=== PATIENT | female | born 1995 | race Caucasian/White ===

== ENCOUNTER 2017-01-06 21:25 | Emergency (ER) | payer OTHER ==
[~2017-01-06 21:25] MED LIST: IBUP800T28 PO; OXYC-466 PO
[2017-01-06 21:32] VITALS: BP 128/95; PULSE 106; RESP 18; O2SAT 100
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
[2017-01-06 22:00] VITALS: BP 123/78; PULSE 74; RESP 14; O2SAT 97
[2017-01-06 22:04] VITALS: BP 112/91; PULSE 101; RESP 16; O2SAT 98
[2017-01-06 22:30] VITALS: BP 101/75; PULSE 69; RESP 12; O2SAT 100
[2017-01-06 22:49] LABS: Mean Corpuscular Hemoglobin 28.1 pg (27.0-35.0); Mean Corpuscular Volume 82.2 fL (81-100)
[2017-01-06 22:50] LABS: BASOPHILS % (AUTO) 0.4 % (0-3); EOSINOPHILS % (AUTO) 1.2 % (0-5); MONOCYTES % (AUTO) 7.1 % (4-12); NEUTROPHILS % (AUTO) 40.2 % (40-74); Platelet Count 247 bil/L (150-400)
[2017-01-06 23:30] VITALS: BP 96/56; PULSE 74; RESP 14; O2SAT 98
[2017-01-07 01:00] VITALS: BP 87/57; PULSE 63; RESP 11; O2SAT 97
[2017-01-07 03:00] VITALS: BP 100/75; PULSE 63; RESP 13; O2SAT 99
[2017-01-07 06:15] VITALS: BP 109/78; PULSE 66; RESP 13; O2SAT 99
[2017-01-07] MEDS ORDERED: LORA-302 PO (10:55)
[2017-01-07 11:07] VITALS: BP 110/74; PULSE 68; RESP 14; O2SAT 99
== END 2017-01-07 11:08 | disposition home or self-care (01) ==
LOC: SED 21:25
DX: R40.0 Somnolence (principal); T40.602A Poisoning by unspecified narcotics, intentional self-harm, initial encounter; X58.XXXA Exposure to other specified factors, initial encounter; Y92.9 Unspecified place or not applicable; Y93.9 Activity, unspecified; Y99.9 Unspecified external cause status; R45.851 Suicidal ideations; F43.0 Acute stress reaction; F41.9 Anxiety disorder, unspecified; F11.20 Opioid dependence, uncomplicated; F17.200 Nicotine dependence, unspecified, uncomplicated
CPT/HCPCS: 36415; 80053; 81002; 81025; 84443; 84703; 85025; 90791; 99285; G0480

== ENCOUNTER 2017-01-09 16:54 | Inpatient (IN) | payer OTHER, MEDICAID ==
[~2017-01-09] VITALS: Ht 157.5 cm; Wt 50.0 kg
[~2017-01-09 16:54] MED LIST changes: +LORA-302 PO
--- NOTE | 2017-01-09 18:15 | NUR ---
Nurses Admission Note 21 year old involuntary female admitted due to overdose on Hydrocodone and Xanax on 01/06/17 after an argument with her boyfriend. Patient was seen in our ER and sent home with an appointment with [facility] for 01/07/17 and found the staff there were unavailable due to the therapists meeting. Patient traveled to [facility] today with feelings of increasing anxiety,depression and thoughts of self harm. Patient had multiple superficial scratches bilateral inner aspect of forearms. She contracts for safety,denies suicidal thoughts. Patient denied abdominal pain although reported cyclic vomiting after eating when she is stressed. Patient ate 50% of her dinner and then reported having vomited unwitnessed. Patient contracted for safety and will be monitored q 15min. for safety and support.This is the first psychiatric hospitalization for her. Patient has been using narcotics frequently for her abdominal pain and has a h/o heroin abuse in the past.
[2017-01-09] MEDS ORDERED: Alum-Mag Hydrox-Simeth 30 mL Suspension PO PRN (19:15)
[2017-01-09] MEDS ORDERED: Benzocaine-Menthol Lozenge 2/Pkg PO PRN (19:15)
[2017-01-09] MEDS ORDERED: Magnesium Hydroxide 10 mL Oral Concentration PO PRN (19:15)
--- NOTE | 2017-01-10 05:00 | NUR ---
nursing, nights, 11-7 s/o- has appeared to sleep after 2214 during q 15 minute assessments. a- no apparent distress. p- monitor behavior/emotional state, quality, times and amount of sleep, use and effect of medication. franko
[2017-01-10 12:07] VITALS: BP 112/76; PULSE 85; RESP 16
--- NOTE | 2017-01-10 13:54 | NUR ---
Nursing Note [id number] Behavior S/O: Pt ate 100% of breakfast & lunch. She states, "I want to get out of here....I don't know why I'm here....I just came in because I was anxious." Pt making frequent requests of staff. Pt attended community meeting this morning, but refused to set a goal for the day. Pt d/n attend any other groups during the day. Pt in room most of the day. Conversation tracking clear & organized. She sometimes chooses not to answer when asked a question, but just shakes her head. Pt rated mood at a "1" on a scale of 1-10/10 the best. A: Pt refuses to engage in treatment on the unit. P: Provide supportive environment. Monitor medications & effects.
[2017-01-10] MEDS: LORazepam 1 mg Tablet PO PRN (16:54)
--- NOTE | 2017-01-10 17:15 | NUR ---
Observations 0900 to 2130 Pt affect and mood was flat, anxious, entitled and isolative. Pt speech was guarded. Pt eye contact was good. Pt attended community meeting and set a daily goal. Pt rated her mood a 1/10, with 10 being the best. Pt was minimally social with staff and select peers when approached. Pt gives short responses when approached. Pt attended meals in [facility]. and ate 100% of her meals. Pt maintained behavior throughout the shift. Pt was polite, pleasant and cooperative. Pt was in her room during free time and keeps to herself. Pt watched a little bit of TV. Pt was observed every 15 minutes throughout the shift as ordered.
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
--- NOTE | 2017-01-10 22:07 | NUR ---
Nurses Note Evening "I'm ok, better than yesterday." Patient has been isolating to her room either reading or speaking on the phone. Her affect has been blunted with a constricted mood. She denied feelings of self harm and will be maintained on q 15min. checks for safety and support. Addendum: 01/10/17 at 2219 by JARROD HAAS RN Amended: Links added.
[2017-01-11 10:11] VITALS: BP 114/74; PULSE 110; RESP 18
[2017-01-11] MEDS: LORazepam 1 mg Tablet PO PRN ×2 (10:42→15:23)
--- NOTE | 2017-01-11 12:35 | NUR ---
Nursing Day shift- S- "I haven't done it since I was like 12 or 13. I don't know why I did it." O- Pt. was awake at 0845 for breakfast. She requested discharge at that time, and denied depression or Suicidal thoughts. Pt's ended up having a family mtg. with her parents and the MD. Her 72 hour hold was continued until 17. After court the Pt. appeared distressed and requested Ativan and Vistaril. Ativan 1 mg PRN was given. Pt. went to her room and appeared to relax while reading a book. At 1230 she rated her anxiety as 5/10. She denied an urge to cut on her forearms. Pt. has multiple superficial lacerations on both inner forearms from elbow to wrist. Pt. was instructed wash them well in the shower. then apply Bacitracin. A- Anxiety. Impulsive behavior. Frustration with extension of CARLOS EDUARDO hold. P- Cont. BHTP.
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
--- NOTE | 2017-01-11 16:55 | NUR ---
Observations 0900 to 2130 Pt affect and mood was flat, anxious and emotional. Pt speech and eye contact was good. Pt attended community meeting and set a daily goal. Pt was minimally social with staff and select peers when approached. Pt gives short responses when approached. Pt attended meals in D.R. and ate 100% of her meals. Pt maintained behavior throughout the shift. Pt was polite, pleasant and cooperative. Pt watched TV for most of the afternoon. Pt refused to attend groups and unit activities. Pt was observed every 15 minutes throughout the shift as ordered.
--- NOTE | 2017-01-11 20:43 | NUR ---
NURSING NOTE [id number] Mood= "anxious... I had a bad day" Affect= flat, sad Behavior= pt. has been watching TV by herself the entire shift, not social w/peers, did attend wrap-up group Thought processes= denies SI/HI, reports feeling down d/t a family meeting that transpired earlier today where she says she learned her father is not going to let her live w/him when she discharges. This has given her anxiety, she reports, and she requested PRN Lorazepam 1 mg @ 15:25. Pt. reports the Lorazepam has been more effective for her than Vistaril. Addendum: 01/11/17 at 2114 by JEREMY PERRY RN PRNs: Trazodone 50 mg, Vistaril 50 mg @
--- NOTE | 2017-01-12 05:56 | NUR ---
Nursing note: title attorney Patient appears to be sleeping on safety checks during the night. No complaints offered
[2017-01-12 10:37] VITALS: BP 114/74; PULSE 70; RESP 16
--- NOTE | 2017-01-12 11:42 | NUR ---
Nursing Day Shift- S- "I'm fine." O- Pt. appeared asleep at the start of the day shift. She awoke for breakfast, eat well and reported a good nights sleep. Pt. watched TV after breakfast, and appeared relaxed. She denied SI and HI, rated anxiety as 5/10, and depression as 2/10. Pt. requested and was given Vistaril 50 mg at 1030 for anxiety. A- Limited insight. Irritation and frustration with long term. Anxiety. P- Cont. bHTP.
--- NOTE | 2017-01-12 12:53 | NUR ---
Observations 0700 to 1900 Pt affect and mood was same as previous days on the unit. Pt was flat and withdrawn. Pt speech and eye contact was ok. Pt did not attend community meeting. Pt was minimally social with staff and select peers when approached. Pt attended meals in D.R. and ate 100% of her meals. Pt maintained behavior throughout the shift. Pt watched TV and keeps to herself. Pt used the phone a couple of times. Pt was observed every 15 minutes throughout the shift as ordered.
[2017-01-12] MEDS: LORazepam 1 mg Tablet PO PRN (15:52)
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
--- NOTE | 2017-01-12 18:41 | NUR ---
Body Builder./ c.m. S.:"I'm good... I'm fine. I'm anxious because I'm here." O.: met with pt. and MD together. Pt. complained about very vivid dreams. She said that she was "sleeping better but I have a whole bunch of animal dreams." She denied side effects from meds. She denied panic attacks. She denied SI/HI, denied AH/VH. She rated depression at 2/10 and anxiety at 2/10 also but she said "I just took Ativan." She agreed to do journaling and she was given handout about Gratitude Journaling as well as a journal bu the principal technical writer. Furnace Process Plant Operator also gave pt. info in DBT. Pt. was in and out of her room sitting mostly near TV. She didn't socialized with other peers. A.: pt. is cooperative, quiet, isolative. P.: monitor behavior, use journaling, relaxation and DBT handouts, encourage pt. to participate in the unit activities; follow care plan.
--- NOTE | 2017-01-12 19:51 | NUR ---
NURSING NOTE [id number] Mood: "a little better today. I guess I've come to terms with my situation now" *shrugs* Affect: flat, bored Behavior: pt mostly watching TV this shift. She read through several DBT packets and asked for a pen to take notes. Her mother visited and they chatted and played cards. She took a shower. Thought processes: reports 6/10 anxiety, some depression, denies SI/HI. She reports her anxiety stems from not being able to get done what I need to do on the outside while she is here, clarifying that she is unsure of her living situation and what to do when she leaves here and that she feels stuck here. PRNs Ativan 1 mg given @ 15:52 for 6/10 anxiety. Pt was initially offered Vistaril PRN but declined and stated "it doesn't help me with anxiety".
--- NOTE | 2017-01-13 05:17 | NUR ---
Sleep Adequate sleep through the night with no noted distress or awakening per protocol checks. Total sleep 6+ hours.
--- NOTE | 2017-01-13 10:33 | NUR ---
Nursing Day Shift- S- "I was in a pretty good mood yesterday, I'm in a good mood today. I had a little trouble falling asleep, but then I slept till I was woken at 8. I read the DBT packet. That's the kind of therapy I'm going to do when I get out of here." O- Pt. was asleep until 0830. She got up at that time, eat, and began journaling. She reported good sleep and rated her depression and anxiety as 2/10. A- Pt. appears more open to treatment for depression and impulsive behavior. P- Cont. BHTP.
[2017-01-13] MEDS: LORazepam 1 mg Tablet PO PRN (16:44)
--- NOTE | 2017-01-13 18:20 | NUR ---
[facility] Day Shift Pt maintained behavioral control throughout the shift. Pt affect appears mostly flat, occasionally brighter when engaged with staff. Pt is mostly isolative throughout the shift, but is occasionally participatory in unit activities when prompted. Pt spends most of the shift resting in her room, watching TV in the dining room, or making phone calls. Pt is appropriate with staff and peers when active on the unit, but is not overly social. Pt attended community meeting and the AM group, but did not participate in afternoon group. Pt attended all meals and ate approx 100% of all meals.
--- NOTE | 2017-01-13 18:25 | PCM.PNPSY ---
Subjective Date of Service Jan 13, 2017 Subjective The patient reports that she is feeling "hopeful and happy". She has worked on a discharge plan as well as self soothing exercises. She reviewed the DBT materials provided by the counselor and found them helpful. She reports feeling that she is doing well and would like to be discharged on Saturday as that is when her 72 hour hold would have however she is aware that the actual 72 hour order extends through Saturday. She denies any medication side effects. Sleep: 6+ hours Appetite: "Good" Suicidal and homicidal ideation: denies Auditory hallucinations/Visual hallucinations: denies Other Psychotic Symptoms: N/A Anxiety: 12/14 Depression: 0-11/13. Current Medications Current Medications Lorazepam 1 mg Q6H PRN PO Last administered on 01/13/17t 16:44; Admin Dose 1 MG ; Start 01/12/17 at 16:10 Mental Status Exam Appearance: Neat/well groomed Attitude: Pleasant, Cooperative Behavior: No unusual behavior Affect: Well Modulated/Appropriate, Restricted Mood: Euthymic Thought Process/Associations: Logical/Sequential, Goal Directed Speech Production: Normal Speech Rate: Normal Speech Articulation: Normal Thought Content: Appropriate Danger to Self/Suicidal Ideati: None Danger to Others: None Hallucinations: Auditory (Denies), Visual (Denies) Consciousness: Alert Orientation: Person, Place, Date, Situation Estimate Intellectual Function: Average Basis for IQ estimate: Awareness current events, Word use/vocabulary, Educational history, Employment history Attention/Concentration & Cogn: Grossly Intact Insight: Limited Judgement: Limited Mental Health Plan The patient is a 21-year-old female with a recent overdose and cutting prior to admission and reported plan to attempt again with increasing agitation upon assessment in the emergency department. She originally attempted to seek help but has had worsening symptoms and was subsequently detained. The patient appears calmer today and is willing to work on DBT and journaling skills. The patient has been cooperating with treatment and groups and working on DBT materials provided. She reports that medication are effective and she is reporting minimal anxiety and depression at this time. [place] I: 1. Opiate use disorder. 2. Rule out post-traumatic stress disorder. 3. Major depression versus dysthymic disorder. [place] II: Probable Borderline personality disorder. [place] III: Status post lacerations to forearms. [place] IV: Moderate to severe. [place] V: Global Assessment of Functioning 40 Medications Lexapro 10mg po daily. Lorazepam 1mg po q6hr prn anx/agit Treatments 1. The patient is admitted to the inpatient unit and will be provided a safe and secure environment. 2. The patient is denying current active suicidality and is not in need of a one-to-one at this time. 3. The patient is encouraged to participate with group and milieu activities. 4. The patient will be seen by the treatment team on a daily basis to assess symptoms, side effects, and response to treatment. 5. The patient will be started on escitalopram 10 mg daily. 6. The frequency of lorazepam was reduced in preparation for discharge. Hydroxyzine also 50 mg q.4 h. as needed for anxiety. 7. Trazodone 50 mg p.o. nightly as needed for insomnia. 8. Nicotine replacement. 9. Anticipated length of stay is 3-5 days. Lee Branch MD Jan 13, 2017 18:25 9. Anticipated length of stay is 3-5 days. Lee Branch MD Jan 13, 2017 18:25
--- NOTE | 2017-01-13 20:09 | NUR ---
NURSING NOTE [id number] Mood= "it was good earlier today but that visit messed me up" Affect= bored, depressed Behavior= watching TV at start of shift. Not interacting w/peers. Her father visited and pt. reported she had a hard time during the visit as she became anxious about her housing situation. She explained that her father is in charge of her rent but that she was given an eviction notice after she had already paid her rent. Her father is also not willing to let her stay with him. 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 She attended wrap-up group. Thought processes= logical and linear, denies SI/HI, endorses anxiety re: housing and employment. PRNs Ativan 1 mg, Shyann henning @ 16:45
--- NOTE | 2017-01-14 06:01 | NUR ---
Nursing Note slot shift supervisor 11pm to 7am Pt in bed at start of shift. Slept through the night. In no acute distress.
[2017-01-14] MEDS: LORazepam 1 mg Tablet PO PRN (11:51)
[2017-01-14] MEDS ORDERED: ESCI10TA52 PO (12:41)
[2017-01-14] MEDS ORDERED: HYDR50CA3 PO (12:41)
--- NOTE | 2017-01-14 13:07 | PCM.DIMED ---
Discharge Instructions Date of Service Jan 14, 2017 Dates of Hospitalization Jan 09, 2017 at 18:24 Discharge Diagnosis Discharge Diagnosis [place] I: 1. Opiate use disorder. 2. Rule out post-traumatic stress disorder. 3. Major depression versus dysthymic disorder. [place] II: Probable Borderline personality disorder. [place] III: Status post lacerations to forearms. [place] IV: Moderate to severe. [place] V: Global Assessment of Functioning 50 Medication Instructions I Strongly encouraged patient to follow up with outpatient care: 1-Recommended patient takes medication as prescribed and not alter this unless under the direct care of a provider. 2-Recommend client refrain from recreational drugs and alcohol while taking psychiatric medications. 3--Recommend patient attempt to find a therapist or group to deal with impulse control and interpersonal relationship conflicts Diet No restrictions Activity No restrictions Call your provider Fever or Chills Patient Instructions Follow-up plan Follow-up with Dr. Yancy Sosa 01/16/2017 10 AM Mario Cruz Follow-up [facility] group Follow-up with PCP in: 2 weeks Duncan Arriaza MD Jan 14, 2017 13:07
[2017-01-14 13:33] VITALS: BP 107/65; PULSE 77; RESP 16
--- NOTE | 2017-01-14 14:26 | NUR ---
Nursing: Day shift and Discharge Elvira has been out in the open unit today, watching TV with peers. She is alert, self-directed in making arrangements for discharge follow up. She denies depression or suicidal ideation. She rated anxiety at 2/10 with 10 being high, 2 low. She rated her mood as 4/10 with 10 being the best. Completed safety plan and EWS form. Gathered belongings and left unit at 1440. All outcomes met. Addendum: 01/14/17 at 1450 by GOSIA COURTNEY RN Amended: Links added. Addendum: 01/14/17 at 1453 by GOSIA COURTNEY RN PRN meds: At 1145, pt approached staff indicating that she needed Ativan 1 mg. Rated anxiety at 7/10. Administered at 1155. At time of DC as pt left anxiety was reduced. Assessment: Effective
--- NOTE | 2017-01-14 17:55 | NUR ---
Operations Professional./ c.m. S.:"I'm good." O.: met with pt. to discuss her discharge plan. She slept "pretty good" last night. She denied SI/HI, denied AH/VH or paranoid/delusional thoughts. She liked DBT handouts and wanted to continue working on them. She felt ready for discharge today. She has a car here at the hospital. She has follow up appt. with her PCP, Lauryn Plunkett MD on January 16 at 10:30 am at [facility] in [facility] ([phone]). Crew Manager called [facility] for follow up appt. for mental health services but there was no record of pt.'s intake appt. over there. Crew Manager was told that pt. could come as a walk-in client for intake assessment on Sat., Sat. and Sat. from 8:30 am till 11:00 am. ([phone]). A.: pt. is cooperative, pleasant, has a bright affect and a positive attitude. P.: monitor behavior, follow care plan.
--- NOTE | 2017-01-14 23:48 | DIS ---
[address] [address] DISCHARGE SUMMARY PATIENT: VERONIQUE JHA : 1995 MR#: [id number] ADMIT: 01/10/2017 JOB ID: [id number] DIS: 01/14/2017 IDENTIFICATION: The patient is 21-year-old female with history of anxiety who was admitted on a 72 hour involuntary treatment hold on the grounds of danger to self following an overdose of pain medications. SUMMARY OF PRESENT ILLNESS: The patient is a 21-year-old female with a recent overdose and self-harm in the form of cutting prior to admission. She reported a plan to attempt suicide again and was having increased agitation upon assessment in the emergency department. Her urine tox was positive for benzodiazepines and opiates. Her symptoms appeared to be most consistent with an ongoing mood disorder with mixed anxiety and depression, and possible PTSD. HOSPITAL COURSE: The client was admitted to the unit and was provided with high degree of safety through the structure and active adult engagement she received here. We had her participate in one-to-one unit and group activities focused on improving coping skills and coming up with a safety plan should suicidal ideation return as an outpatient. She participated actively in all the above activities and was able to develop a reasonable safety plan. She was given medications Lexapro 10 mg daily, and she appeared to respond to this quite well. Today, she is requesting discharge and was able to identify a reasonable safety plan with me. She has outpatient schedule with a physician and is planning on following up with outpatient psychotherapy through [facility]. MENTAL STATUS: Neatly dressed, calm, pleasant. Mood euthymic. Affect congruent. Normal intensity. Thought process, client is able to relate a coherent history. Logical and spontaneous process with no signs of psychosis. Thought content, significantly consistently denied suicidal ideation, plan, or intent, and detailed a reasonable safety plan. Insight judgment appropriate. Impulse control highly contained. Reality testing intact. Competence to handle current stress appears to have returned to baseline. DISCHARGE DIAGNOSES: AXIS I: 1. Opiate use disorder. 2. Rule out posttraumatic stress disorder. 3. Major depression versus dysthymic disorder. AXIS II: Borderline personality traits. AXIS III: None. AXIS IV: Moderate. AXIS V: Current Global Assessment of Functioning equal to 50. DISCHARGE MEDS: 1. Lexapro 10 mg daily. 2. Vistaril IN 25-50 mg p.o. q.4 h. p.r.n. anxiety. DISCHARGE PLAN: Client to follow up with Dr. Yancy Sosa, January 16, 2017, at 10 a.m. Follow up with [facility] for [facility] group. Activity and diet, no restriction. CONDITION ON DISCHARGE: Good. PROGNOSIS: Good.
== END 2017-01-14 14:45 | disposition home or self-care (01) | DRG 897 ==
LOC: MHC 18:24
PROVIDERS: ADMIT Psychiatry & Neurology Psychiatry; ATTEND Psychiatry & Neurology Psychiatry
DX: F11.10 Opioid abuse, uncomplicated (principal); R45.851 Suicidal ideations; Z62.810 Personal history of physical and sexual abuse in childhood; Z91.5 Personal history of self-harm; F32.9 Major depressive disorder, single episode, unspecified; F34.1 Dysthymic disorder; F60.3 Borderline personality disorder